=== PATIENT | male | born 1950 | race Caucasian/White ===

== ENCOUNTER 2019-05-29 09:57 | Outpatient (CLI) | payer BC | END 2019-05-29 23:59 | disposition home or self-care (01) | LOC: ROC 09:57 | PROVIDERS: ATTEND Radiology Radiation Oncology | DX: C20 Malignant neoplasm of rectum (principal) | CPT/HCPCS: 99214; G0463 ==

== ENCOUNTER 2019-11-27 10:33 | Outpatient (CLI) | payer BC ==
[2019-11-27] MEDS ORDERED: VISIPAQUE 270 MG/ML, 50ML BOTTLE ONE (11:20)
== END 2019-11-27 23:59 | disposition home or self-care (01) ==
LOC: RAD 10:33
PROVIDERS: ATTEND Internal Medicine Hematology & Oncology
DX: T82.594A Other mechanical complication of infusion catheter, initial encounter (principal); C20 Malignant neoplasm of rectum; Y83.8 Other surgical procedures as the cause of abnormal reaction of the patient, or of later complication, without mention of misadventure at the time of the procedure
CPT/HCPCS: 36598; Q9966; 76000

== ENCOUNTER 2019-12-14 07:26 | Day surgery (SDC) | payer BC ==
[~2019-12-14] VITALS: Ht 172.7 cm; Wt 72.6 kg
[2019-12-14 08:23] VITALS: BP 121/79
[2019-12-14] MEDS ORDERED: SODIUM CHLORIDE 0.9% 1,000 ML IV SCH (08:30)
[2019-12-14] MEDS ORDERED: LIDOCAINE 1%, 10ML ONE (08:46)
[2019-12-14] MEDS ORDERED: MIDAZOLAM 1 MG/ML, 5ML ONE (09:06)
[2019-12-14] MEDS ORDERED: FLUMAZENIL 0.1 MG/1 ML, 5ML ONE (09:06)
[2019-12-14] MEDS ORDERED: NALOXONE 1 MG/ML, 2ML ONE (09:06)
[2019-12-14] MEDS ORDERED: FENTANYL PF 100 MCG/2ML ONE (09:06)
== END 2019-12-14 11:10 | disposition home or self-care (01) ==
LOC: OUT 07:26
PROVIDERS: ATTEND Internal Medicine Hematology & Oncology
DX: T82.898A Other specified complication of vascular prosthetic devices, implants and grafts, initial encounter (principal); Y83.8 Other surgical procedures as the cause of abnormal reaction of the patient, or of later complication, without mention of misadventure at the time of the procedure; C20 Malignant neoplasm of rectum
CPT/HCPCS: 36590; 77001; 99156; 99157; J2250; J3010; J7030; J2310